=== PATIENT | male | born 1970 | race Two or more races ===

== ENCOUNTER → 2020-04-14 | Emergency (ER) | payer OTHER ==
[~2020-04-14] VITALS: Ht 198.1 cm; Wt 108.0 kg
[~2020-04-14] MED LIST: HYDROCODONE/APAP 10/325MG TABLET ONE; HYDROCODONE/APAP 10/325MG TABLET PO ONE; PROPOFOL 20 ML IV ONE
--- NOTE | 2020-04-14 11:58 | NUR ---
Abrasions cleaned- neosporin applied. at bedside to update pt. Pt States "Pain controlled"
--- NOTE | 2020-04-14 12:49 | NUR ---
OFFICER SHANNON FROM [facility] CALLED FOR THE PT. CALL BACK NUMBER [phone]
--- NOTE | 2020-04-14 12:56 | NUR ---
Pt set up for sedation per MD orders. Consented for closed reduction of left ankle dislocation
--- NOTE | 2020-04-14 13:30 | NUR ---
RELOCATION COORDINATOR AT BEDSIDE FOR POST REDUCTION XRAY.
[2020-04-14 13:55] VITALS: BP 127/59
--- NOTE | 2020-04-14 13:55 | NUR ---
IV removed. Catheter intact and site benign. Pressure and 4x4 applied to site. No bleeding noted. Patient discharged to home in stable condition. Written and verbal after care instructions given. Patient verbalizes understanding of instruction.
--- NOTE | 2020-04-14 14:02 | NUR ---
Back to pre-procedural baseline. NO obvious distress. States "Pain only w/movement." Crutch and Gait training by EMT Rajendra. 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 Written and verbal after care instructions given. Patient verbalizes understanding of instruction.
== END | disposition home or self-care (01) ==
LOC: ER 09:53
DX: S82.61XA Displaced fracture of lateral malleolus of right fibula, initial encounter for closed fracture (principal); S80.812A Abrasion, left lower leg, initial encounter; S80.811A Abrasion, right lower leg, initial encounter; V49.49XA Driver injured in collision with other motor vehicles in traffic accident, initial encounter; Y93.89 Activity, other specified; Y92.488 Other paved roadways as the place of occurrence of the external cause; Y99.8 Other external cause status
CPT/HCPCS: 27788; 73590; 73600; 73610; 99152; 99285; J2704; J7030; G0500